=== PATIENT | female | born 1955 | race Caucasian/White ===

== ENCOUNTER → 2018-01-08 | Outpatient (CLI) | payer MEDICARE ==
[~2018-01-08] MED LIST: BUP75 PO; CALC250T7 PO; DONE10TA38 PO; GABA-551 PO; MULT-865 PO; NAT300I IV; PUMP300C; SULF-198 PO; TRAZ100T31 PO
[2018-01-08 11:43] LABS: PLATELET COUNT, AUTOMATED 286 K/uL (150-450)
[2018-01-08 12:02] LABS: LDL CHOLESTEROL 95 mg/dl
== END ==
LOC: LAB 11:18
PROVIDERS: ATTEND Emergency Medicine
DX: G35 Multiple sclerosis (principal); R20.8 Other disturbances of skin sensation; M81.0 Age-related osteoporosis without current pathological fracture; N39.0 Urinary tract infection, site not specified
CPT/HCPCS: 36415; 81001; 82040; 82247; 82306; 82310; 82374; 82435; 82465; 82565; 82607; 82947; 83718; 83970; 84075; 84132; 84155; 84295; 84443; 84450; 84460; 84478; 84520; 85025; 87088

== ENCOUNTER 2018-03-24 08:33 | Observation (INO) | payer MEDICARE ==
[~2018-03-24] VITALS: Ht 162.6 cm; Wt 66.7 kg
[2018-03-24] MEDS ORDERED: OXYB10TA16 (09:03)
[2018-03-24] MEDS ORDERED: NS(*) 0.9% 1000 ML BAG 1,000 ML IV ONE (09:35)
--- NOTE | 2018-03-24 09:35 | ER Report ---
History and Physical Time Seen By MD: 09:27 Hx. of Stated Complaint: Pt. has a history of MS. Cough since yesterday morning. Hypoxic 84% on room air, but came up to 93% on 4L O2. This morning she fell around 5:00am. Increased weakness from baseline. Trouble speaking this morning, which is not normal for her. Quick Neuro assessment, left sided weakness. Also has left wrist pain. HPI/ROS CHIEF COMPLAINT: Generalized weakness; fall HISTORY OF PRESENT ILLNESS: Patient is a 62-year-old female who was diagnosed with multiple sclerosis in 1984. Patient has baseline right-sided weakness. She is somewhat of a poor historian due to some mild cognitive impairment and additional history is obtained from the patient's . We are also trying to obtain medical records from [place] where she receives medical care and is followed by neurology. Patient notes worsening left-sided weakness. Apparently had a fall last evening and struck her head and then again the fall this morning around 5 AM with injury to left wrist and complaining of left wrist pain. notes that she is having difficulty with ambulating due to weakness. Patient was further found to be hypoxic ON ARRIVAL TO THE EMERGENCY DEPARTMENT AT 84%. PATIENT DOES NOT WEAR OXYGEN AT HOME. Patient does report bodyaches and headache along with sore throat yesterday. She denies any urinary symptoms. She is currently receiving Tysabri infusions next infusion as scheduled from 2 weeks from now. She has not required hospitalization due to MS for some period of time. REVIEW OF SYSTEMS: Constitutional: No fever, no chills. Generalized weakness Eyes: No discharge. ENT: No sore throat. Cardiovascular: No chest pain, no palpitations. Respiratory: No cough, no shortness of breath. Gastrointestinal: No abdominal pain, no vomiting. Genitourinary: No hematuria. Musculoskeletal: No back pain. Skin: No rashes. Neurological: Gen. headache Allergies: Coded Allergies: Penicillins (Verified Allergy, Unknown, unknown, 03/24/18) reported by patient, unknown reaction as a child Home Meds Reported Medications Oxybutynin Chloride (OXYBUTYNIN CHLORIDE ER) 10 Mg Tab.er.24 03/24/18 Trazodone Hcl (TRAZODONE HCL) 100 Mg Tablet, 100 MG PO QHS, TAB 01/08/18 Natalizumab (TYSABRI) 300 Mg/15 Ml Injs, 300 MG IV every 28 days 01/08/18 Multivitamin (DAILY MULTIPLE VITAMIN) 1 Each Tablet, 1 TAB PO DAILY 01/08/18 Gabapentin (GABAPENTIN) 400 Mg Capsule, 400 MG PO 5XD, CAPSULE 01/08/18 Donepezil Hcl (DONEPEZIL HCL) 10 Mg Tablet, 10 MG PO QDAY, TAB 01/08/18 Calcium Citrate (CALCIUM CITRATE) 250 Mg Tablet, 250 MG PO DAILY 01/08/18 Discontinued Reported Medications Pumpkin Seed Extract/Soy Germ (Azo Bladder Control Capsule) Unknown Strength Capsule 01/08/18 Discontinued Scripts Sulfamethoxazole/Trimet 800-160 Mg Tab (BACTRIM DS TABLET) 1 Each Tablet, 1 TAB PO Q12H for 7 Days, #14 TAB 0 Refills Prov:RUTHANN VIDALES MD 01/12/18 Past Medical/Surgical History Past medical history for multiple sclerosis diagnosed in her 30s. Currently taking Tysabri. Receives these monthly injections in [place]. She has a history of right hand weakness requires oral steroids about 3 times a year for exacerbations. Past medical history for mild cognitive impairment history of osteoporosis history of breast cancer undergoing partial right mastectomy in 2006. History of migraines, asthma, history of hysterectomy 1981 Smoking Status: Never Smoker Exposure to Second Hand Smoke?: Yes (both parents smoked) Constitutional Vital Sign - Last 24 Hours 03/24/18 03/24/18 03/24/18 03/24/18 08:54 08:55 09:00 09:03 Temp 98.4 Pulse 112 114 B/P (MAP) 138/98 (111) 138/98 125/84 (98) Pulse Ox 94 94 O2 Delivery Nasal Cannula 03/24/18 03/24/18 03/24/18 03/24/18 09:33 10:03 10:03 10:08 Pulse 109 104 104 Resp 22 30 19 Pulse Ox 93 94 93 O2 Flow Rate 4.0 03/24/18 03/24/18 03/24/18 03/24/18 10:38 11:17 11:30 11:38 Pulse 98 98 Resp 20 19 B/P (MAP) 120/92 (101) 118/80 (93) Pulse Ox 98 97 03/24/18 03/24/18 03/24/18 03/24/18 12:00 12:05 12:10 12:15 Pulse 101 101 99 Resp 16 22 20 B/P (MAP) 131/88 (102) 03/24/18 03/24/18 03/24/18 03/24/18 12:20 12:25 12:30 12:35 Pulse 95 96 96 Resp 16 14 27 B/P (MAP) 120/75 (90) 03/24/18 03/24/18 12:40 12:45 Pulse 96 90 Resp 17 16 Physical Exam General/Constitutional: Patient is awake, alert, nontoxic and in no acute respiratory distress. Head: Normocephalic and atraumatic. Eyes: Conjunctival clear, Pupils are equal and reactive to light. Extraocular muscles are noted for fatigable bilateral horizontal nystagmus. Sclera are clear and anicteric. Ears:External canals are clear. Tympanic membranes are clear with normal landmarks and light reflex. Nares: No rhinorrhea or bleeding. Turbinates are pink and moist. Oropharyngeal: Mucous membranes are moist. There is no pharyngeal erythema or exudate. There are no palatal petechiae. Uvula is midline and symmetrical. Neck: Supple, no adenopathy. Cardiovascular: Heart is regular rate and rhythm without audible murmurs, rubs or gallops. Pulmonary: Lungs are clear to auscultation bilaterally. There are no wheezes, rales, or rhonchi. Chest rise is symmetrical Abdomen: Soft, nontender, no guarding or peritoneal signs. Extremities: No gross deformities, No peripheral cyanosis. Able to move all 4 extremities. Neuro: Alert and oriented X3, Cranial nerves 2 thru 12 are intact and symmetrical. Decreased left sided negative retoucher strength. There are no gross motor exam 4 out of 5 except left negative retoucher Skin: No rashes, skin is warm dry and well perfused. Medical Decision Making Data Points Result Diagram: 03/24/1823 03/24/18 0923 Laboratory Hematology Test 03/24/18 09:23 03/24/18 09:51 03/24/18 09:55 Red Blood Count 5.10 M/uL (4.17-5.56) Mean Corpuscular Volume 86.2 fL (80.0-96.0) Mean Corpuscular Hemoglobin 29.3 pg (26.0-33.0) Mean Corpuscular Hemoglobin Concent 33.9 g/dL (32.0-36.0) Red Cell Distribution Width 14.0 % (11.5-14.5) Mean Platelet Volume 8.2 fL (7.2-11.1) Neutrophils (%) (Auto) 82.8 % (39.4-72.5) Lymphocytes (%) (Auto) 7.4 % (17.6-49.6) Monocytes (%) (Auto) 8.8 % (4.1-12.4) Eosinophils (%) (Auto) 0.5 % (0.4-6.7) Basophils (%) (Auto) 0.5 % (0.3-1.4) Nucleated RBC Relative Count (auto) 0.1 /100WBC Neutrophils # (Auto) 6.1 K/uL (2.0-7.4) Lymphocytes # (Auto) 0.5 K/uL (1.3-3.6) Monocytes # (Auto) 0.6 K/uL (0.3-1.0) Eosinophils # (Auto) 0.0 K/uL (0.0-0.5) Basophils # (Auto) 0.0 K/uL (0.0-0.1) Nucleated RBC Absolute Count (auto) 0.01 K/uL Prothrombin Time 13.9 seconds (12.0-14.4) Prothromb Time International Ratio 1.07 Activated Partial Thromboplast Time 29 seconds (23-35) Sodium Level 140 mmol/L (137-145) Potassium Level 3.5 mmol/L (3.5-5.0) Chloride Level 104 mmol/L (98-107) Carbon Dioxide Level 28 mmol/L (22-31) Blood Urea Nitrogen 14 mg/dl (7-18) Creatinine 0.70 mg/dl (0.52-1.04) Glomerular Filtration Rate Calc > 60.0 Random Glucose 122 mg/dl (75-110) Lactate 1.6 mmol/L (0.7-2.1) Calcium Level 9.3 mg/dl (8.4-10.2) Magnesium Level 2.0 mg/dl (1.7-2.2) Total Bilirubin 0.5 mg/dl (0.2-1.3) Aspartate Amino Transf (AST/SGOT) 49 U/L (0-35) Alanine Aminotransferase (ALT/SGPT) 61 U/L (0-56) Alkaline Phosphatase 81 U/L (0-126) Total Creatine Kinase 27 U/L (30-135) Troponin I < 0.012 ng/ml Total Protein 8.2 g/dl (6.3-8.2) Albumin 4.9 g/dl (3.5-5.0) Urine Color Yellow Urine Clarity Turbid Urine pH 7.0 pH (4.8-9.5) Urine Specific [place] 1.017 Urine Protein 30 mg/dL (NEGATIVE) Urine Glucose (UA) Negative mg/dL (NEGATIVE) Urine Ketones Negative mg/dL (NEGATIVE) Urine Blood Negative (NEGATIVE) Urine Nitrite Negative (NEGATIVE) Urine Bilirubin Negative (NEGATIVE) Urine Urobilinogen Negative mg/dL (0.2-1.9) Urine Leukocyte Esterase Negative (NEGATIVE) Urine RBC None /HPF (0-2/HPF) Urine WBC None /HPF (0-5/HPF) Urine Squamous Epithelial Cells None /LPF (NONE-FEW) Urine Amorphous Crystals Few /HPF Urine Bacteria Negative /HPF (NONE-FEW) Urine Mucus None /HPF (NONE-FEW) Influenza Virus Type A (PCR) Positive (NEGATIVE) Influenza Virus Type B (PCR) Negative (NEGATIVE) Chemistry Test 03/24/18 09:23 03/24/18 09:51 03/24/18 09:55 White Blood Count 7.4 k/uL (4.5-11.0) Red Blood Count 5.10 M/uL (4.17-5.56) Hemoglobin 14.9 g/dL (12.0-16.0) Hematocrit 44.0 % (34.0-47.0) Mean Corpuscular Volume 86.2 fL (80.0-96.0) Mean Corpuscular Hemoglobin 29.3 pg (26.0-33.0) Mean Corpuscular Hemoglobin Concent 33.9 g/dL (32.0-36.0) Red Cell Distribution Width 14.0 % (11.5-14.5) Platelet Count 190 K/uL (150-450) Mean Platelet Volume 8.2 fL (7.2-11.1) Neutrophils (%) (Auto) 82.8 % (39.4-72.5) Lymphocytes (%) (Auto) 7.4 % (17.6-49.6) Monocytes (%) (Auto) 8.8 % (4.1-12.4) Eosinophils (%) (Auto) 0.5 % (0.4-6.7) Basophils (%) (Auto) 0.5 % (0.3-1.4) Nucleated RBC Relative Count (auto) 0.1 /100WBC Neutrophils # (Auto) 6.1 K/uL (2.0-7.4) Lymphocytes # (Auto) 0.5 K/uL (1.3-3.6) Monocytes # (Auto) 0.6 K/uL (0.3-1.0) Eosinophils # (Auto) 0.0 K/uL (0.0-0.5) Basophils # (Auto) 0.0 K/uL (0.0-0.1) Nucleated RBC Absolute Count (auto) 0.01 K/uL Prothrombin Time 13.9 seconds (12.0-14.4) Prothromb Time International Ratio 1.07 Activated Partial Thromboplast Time 29 seconds (23-35) Glomerular Filtration Rate Calc > 60.0 Lactate 1.6 mmol/L (0.7-2.1) Calcium Level 9.3 mg/dl (8.4-10.2) Magnesium Level 2.0 mg/dl (1.7-2.2) Total Bilirubin 0.5 mg/dl (0.2-1.3) Aspartate Amino Transf (AST/SGOT) 49 U/L (0-35) Alanine Aminotransferase (ALT/SGPT) 61 U/L (0-56) Alkaline Phosphatase 81 U/L (0-126) Total Creatine Kinase 27 U/L (30-135) Troponin I < 0.012 ng/ml Total Protein 8.2 g/dl (6.3-8.2) Albumin 4.9 g/dl (3.5-5.0) Urine Color Yellow Urine Clarity Turbid Urine pH 7.0 pH (4.8-9.5) Urine Specific [place] 1.017 Urine Protein 30 mg/dL (NEGATIVE) Urine Glucose (UA) Negative mg/dL (NEGATIVE) Urine Ketones Negative mg/dL (NEGATIVE) Urine Blood Negative (NEGATIVE) Urine Nitrite Negative (NEGATIVE) Urine Bilirubin Negative (NEGATIVE) Urine Urobilinogen Negative mg/dL (0.2-1.9) Urine Leukocyte Esterase Negative (NEGATIVE) Urine RBC None /HPF (0-2/HPF) Urine WBC None /HPF (0-5/HPF) Urine Squamous Epithelial Cells None /LPF (NONE-FEW) Urine Amorphous Crystals Few /HPF Urine Bacteria Negative /HPF (NONE-FEW) Urine Mucus None /HPF (NONE-FEW) Influenza Virus Type A (PCR) Positive (NEGATIVE) Influenza Virus Type B (PCR) Negative (NEGATIVE) Coagulation Test 03/24/18 09:23 Prothrombin Time 13.9 seconds Prothromb Time International Ratio 1.07 Activated Partial Thromboplast Time 29 seconds Urinalysis Test 03/24/18 09:51 Urine Color Yellow Urine Clarity Turbid Urine pH 7.0 pH (4.8-9.5) Urine Specific [place] 1.017 Urine Protein 30 mg/dL (NEGATIVE) Urine Glucose (UA) Negative mg/dL (NEGATIVE) Urine Ketones Negative mg/dL (NEGATIVE) Urine Blood Negative (NEGATIVE) Urine Nitrite Negative (NEGATIVE) Urine Bilirubin Negative (NEGATIVE) Urine Urobilinogen Negative mg/dL (0.2-1.9) Urine Leukocyte Esterase Negative (NEGATIVE) Urine RBC None /HPF (0-2/HPF) Urine WBC None /HPF (0-5/HPF) Urine Squamous Epithelial Cells None /LPF (NONE-FEW) Urine Amorphous Crystals Few /HPF Urine Bacteria Negative /HPF (NONE-FEW) Urine Mucus None /HPF (NONE-FEW) EKG/Imaging EKG Interpretation EKG shows sinus tachycardia with a ventricular rate of 10 6 bpm nonspecific T- wave abnormalities noted on this EKG. Imaging FACILITY: [facility] PATIENT NAME: Maura Naik : 1955 MR: [id number] V: [id number] EXAM DATE: ORDERING PHYSICIAN: MICHAEL LUDWIG TECHNOLOGIST: Location: [facility] Patient: Maura Naik : 1955 Visit/Account:[id number] Date of Sevice: 03/24/2018 EXAMINATION: CT Head without intravenous contrast CT Cervical spine without intravenous contrast HISTORY: Trauma. TECHNIQUE: Head: Axial images were obtained from the skull base to the vertex without int ravenous contrast. Sagittal and coronal reformatted images are also submitted. Cervical spine: Axial images were obtained from the skull base through the upper thoracic spine without IV contrast administration. Coronal and sagittal reformatted images were obtained from the axial source data. One of the following dose optimization techniques was utilized in the performance of this exam: Automated exposure control; adjustment of the mA and/or kV according to the patient's size; or use of an iterative reconstruction technique. Specific details can be referenced in the facility's radiology CT exam operational policy. COMPARISON: None available. FINDINGS: HEAD: Brain volume: Mild generalized volume loss. Ventricles: Negative. Acute ischemic changes: None. Hemorrhage: None. Masses / edema: None. Zhang-white: Negative. White matter: Moderate patchy hypodensity in the periventricular and deep white matter. This is nonspecific but most likely represents chronic microvascular ischemia. Vessels: Mild calcified plaque in the carotid siphons. Extra-axial: Negative. Calvarium / skull base: Negative. Visualized sinuses / orbits: Mild to moderate mucosal thickening in the paranasal sinuses with fluid in the left sphenoid sinus. Rightward nasal septal deviation. CERVICAL SPINE: Alignment: Straightening and slight reversal of the normal lordosis. 2 mm of anterior listhesis of C4 over C5. Cranio-cervical junction: Mild degenerative changes in the atlantodental joint. Otherwise negative. Vertebral bodies: Negative. Posterior elements: Mild multilevel facet hypertrophy. Hardware: None. Disc Spaces: Mild multilevel degenerative disc disease, most severe at C6-C7. Soft tissues: No prevertebral soft tissue swelling. Partially imaged central line on the right. Visualized upper chest: Negative. IMPRESSION: 1. No acute intracranial abnormality. 2. No acute cervical spine fracture. 3. See above report for chronic findings. Report Dictated By: Filipe Padilla MD at 03/24/2018 11:16 AM Report E-Signed By: Filipe Padilla MD at 03/24/2018 11:27 AM WSN:AMICIVN FACILITY: [facility] PATIENT NAME: Maura Naik : 1955 MR: [id number] V: [id number] EXAM DATE: ORDERING PHYSICIAN: MICHAEL LUDWIG TECHNOLOGIST: Location: [facility] Patient: Maura Naik : 1955 Visit/Account:[id number] Date of Sevice: 03/24/2018 CHEST PA LAT HISTORY: Chest pain. Trauma. COMPARISON: None available. FINDINGS: Lines/tubes: Right chest wall port terminating near the atrial caval junction. Lungs/pleura: Mild consolidation versus scarring or atelectasis in the left lung base. Otherwise negative. Heart: Negative. Mediastinum: Negative. Bony structures/body wall: Negative. IMPRESSION: Mild consolidation versus scarring or atelectasis in the left lung base. Otherwise no acute cardiopulmonary process. Report Dictated By: Filipe Padilla MD at 03/24/2018 11:29 AM Report E-Signed By: Filipe Padilla MD at 03/24/2018 11:31 AM FACILITY: [facility] PATIENT NAME: Maura Naik : 1955 MR: [id number] V: [id number] EXAM DATE: ORDERING PHYSICIAN: MICHAEL LUDWIG TECHNOLOGIST: Location: [facility] Patient: Maura Naik : 1955 Visit/Account:[id number] Date of Sevice: 03/24/2018 XR WRIST 3 OR MORE VIEWS LT Indication: Left wrist pain. Trauma. Comparison: None available. Findings: 3 views of the left wrist. No evidence of acute fracture, dislocation, or radiopaque foreign body. Normal mineralization, joint spaces, and alignment. Impression: Negative left wrist radiographs. Report Dictated By: Filipe Padilla MD at 03/24/2018 11:27 AM Report E-Signed By: Filipe Padilla MD at 03/24/2018 11:29 AM WSN:AMICIVN ED Course/Re-evaluation ED Course Patient with history of MS and global weakness. Plan will be imaging of the head and C-spine were also image the left wrist. 03/24/2018 12:17:21 pm patient positive influenza screen remaining workup was essentially unremarkable. Patient is fairly hypoxic on room air and does not wear O2 at home. I am pushing for admission because of positive influenza and hypoxia. Patient was given Tamiflu. Patient is against being admitted at this time but is discussing admission with her family I will revisit them in approximately 5 or 10 minutes to decide her disposition. Decision to Disposition Date: Mar 24, 2018 Decision to Disposition Time: 12:56 Depart Departure Latest Vital Signs Vital Signs Date Time Temp Pulse Resp B/P (MAP) Pulse Ox O2 Delivery O2 Flow Rate FiO2 03/24/18 12:45 90 16 03/24/18 12:30 120/75 (90) 03/24/18 11:38 97 03/24/18 10:03 4.0 03/24/18 08:55 98.4 Nasal Cannula Impression: Primary Impression: Influenza A Additional Impression: Hypoxia Condition: Improved Disposition: Admitted from ER (to Dr Corbett) Referrals: RUTHANN VIDALES MD (PCP) Problem Qualifiers MICHAEL LUDWIG MD Mar 24, 2018 09:35
[2018-03-24 09:44] LABS: PLATELET COUNT, AUTOMATED 190 K/uL (150-450)
[2018-03-24 09:49] LABS: INR 1.07
--- NOTE | 2018-03-24 09:49 | EKG ---
FACILITY: [facility] PATIENT NAME: ULISES MAR : [id number] MR: [id number] V: [id number] EXAM DATE: ORDERING PHYSICIAN: MICHAEL LUDWIG TECHNOLOGIST: DAWSON Geiger Reason : TACHY Blood Pressure : / mmHG Vent. Rate : 106 BPM Atrial Rate : 106 BPM P-R Int : 162 ms QRS Dur : 078 ms QT Int : 346 ms P-R-T Axes : 040 004 007 degrees QTc Int : 459 ms Sinus tachycardia Nonspecific T wave abnormality Abnormal ECG No previous ECGs available Confirmed by Jaylen Forrest ([id number]) on 03/24/2018 9:44:21 PM Referred By: VANI Confirmed By:Jaylen Corbett
--- NOTE | 2018-03-24 11:33 | RADIOLOGY IMAGING REPORT ---
FACILITY: [facility] PATIENT NAME: Maura Naik : 1955 MR: [id number] V: [id number] EXAM DATE: ORDERING PHYSICIAN: MICHAEL LUDWIG TECHNOLOGIST: Location: [facility] Patient: Maura Naik : 1955 Visit/Account:[id number] Date of Sevice: 03/24/2018 EXAMINATION: CT Head without intravenous contrast CT Cervical spine without intravenous contrast HISTORY: Trauma. TECHNIQUE: Head: Axial images were obtained from the skull base to the vertex without intravenous contrast. Sa gittal and coronal reformatted images are also submitted. Cervical spine: Axial images were obtained from the skull base through the upper thoracic spine with out IV contrast administration. Coronal and sagittal reformatted images were obtained from the axial source data. One of the following dose optimization techniques was utilized in the performance of this exam: Autom ated exposure control; adjustment of the mA and/or kV according to the patient's size; or use of an i terative reconstruction technique. Specific details can be referenced in the facility's radiology C T exam operational policy. COMPARISON: None available. FINDINGS: HEAD: Brain volume: Mild generalized volume loss. Ventricles: Negative. Acute ischemic changes: None. Hemorrhage: None. Masses / edema: None. Zhang-white: Negative. White matter: Moderate patchy hypodensity in the periventricular and deep white matter. This is non specific but most likely represents chronic microvascular ischemia. Vessels: Mild calcified plaque in the carotid siphons. Extra-axial: Negative. Calvarium / skull base: Negative. Visualized sinuses / orbits: Mild to moderate mucosal thickening in the paranasal sinuses with fluid in the left sphenoid sinus. Rightward nasal septal deviation. CERVICAL SPINE: Alignment: Straightening and slight reversal of the normal lordosis. 2 mm of anterior listhesis of C 4 over C5. Cranio-cervical junction: Mild degenerative changes in the atlantodental joint. Otherwise negative. Vertebral bodies: Negative. Posterior elements: Mild multilevel facet hypertrophy. Hardware: None. Disc Spaces: Mild multilevel degenerative disc disease, most severe at C6-C7. Soft tissues: No prevertebral soft tissue swelling. Partially imaged central line on the right. Visualized upper chest: Negative. IMPRESSION: 1. No acute intracranial abnormality. 2. No acute cervical spine fracture. 3. See above report for chronic findings. Report Dictated By: Filipe Padilla MD at 03/24/2018 11:16 AM Report E-Signed By: Filipe Padilla MD at 03/24/2018 11:27 AM WSN:NELSON
--- NOTE | 2018-03-24 11:33 | RADIOLOGY IMAGING REPORT ---
FACILITY: [facility] PATIENT NAME: Maura Naik : 1955 MR: [id number] V: [id number] EXAM DATE: ORDERING PHYSICIAN: MICHAEL LUDWIG TECHNOLOGIST: Location: [facility] Patient: Maura Naik : 1955 Visit/Account:[id number] Date of Sevice: 03/24/2018 EXAMINATION: CT Head without intravenous contrast CT Cervical spine without intravenous contrast HISTORY: Trauma. TECHNIQUE: Head: Axial images were obtained from the skull base to the vertex without intravenous contrast. Sa gittal and coronal reformatted images are also submitted. Cervical spine: Axial images were obtained from the skull base through the upper thoracic spine with out IV contrast administration. Coronal and sagittal reformatted images were obtained from the axial source data. One of the following dose optimization techniques was utilized in the performance of this exam: Autom ated exposure control; adjustment of the mA and/or kV according to the patient's size; or use of an i terative reconstruction technique. Specific details can be referenced in the facility's radiology C T exam operational policy. COMPARISON: None available. FINDINGS: HEAD: Brain volume: Mild generalized volume loss. Ventricles: Negative. Acute ischemic changes: None. Hemorrhage: None. Masses / edema: None. Zhang-white: Negative. White matter: Moderate patchy hypodensity in the periventricular and deep white matter. This is non specific but most likely represents chronic microvascular ischemia. Vessels: Mild calcified plaque in the carotid siphons. Extra-axial: Negative. Calvarium / skull base: Negative. Visualized sinuses / orbits: Mild to moderate mucosal thickening in the paranasal sinuses with fluid in the left sphenoid sinus. Rightward nasal septal deviation. CERVICAL SPINE: Alignment: Straightening and slight reversal of the normal lordosis. 2 mm of anterior listhesis of C 4 over C5. Cranio-cervical junction: Mild degenerative changes in the atlantodental joint. Otherwise negative. Vertebral bodies: Negative. Posterior elements: Mild multilevel facet hypertrophy. Hardware: None. Disc Spaces: Mild multilevel degenerative disc disease, most severe at C6-C7. Soft tissues: No prevertebral soft tissue swelling. Partially imaged central line on the right. Visualized upper chest: Negative. IMPRESSION: 1. No acute intracranial abnormality. 2. No acute cervical spine fracture. 3. See above report for chronic findings. Report Dictated By: Filipe Padilla MD at 03/24/2018 11:16 AM Report E-Signed By: Filipe Padilla MD at 03/24/2018 11:27 AM WSN:NELSON
--- NOTE | 2018-03-24 11:34 | RADIOLOGY IMAGING REPORT ---
FACILITY: [facility] PATIENT NAME: Maura Naik : 1955 MR: [id number] V: [id number] EXAM DATE: ORDERING PHYSICIAN: MICHAEL LUDWIG TECHNOLOGIST: Location: [facility] Patient: Maura Naik : 1955 Visit/Account:[id number] Date of Sevice: 03/24/2018 XR WRIST 3 OR MORE VIEWS LT Indication: Left wrist pain. Trauma. Comparison: None available. Findings: 3 views of the left wrist. No evidence of acute fracture, dislocation, or radiopaque foreign body. Normal mineralization, joint spaces, and alignment. Impression: Negative left wrist radiographs. Report Dictated By: Filipe Padilla MD at 03/24/2018 11:27 AM Report E-Signed By: Filipe Padilla MD at 03/24/2018 11:29 AM WSN:NELSON
--- NOTE | 2018-03-24 11:34 | RADIOLOGY IMAGING REPORT ---
FACILITY: [facility] PATIENT NAME: Maura Naik : 1955 MR: [id number] V: [id number] EXAM DATE: ORDERING PHYSICIAN: MICHAEL LUDWIG TECHNOLOGIST: Location: [facility] [place] Patient: Maura Naik : 1955 Visit/Account:[id number] Date of Sevice: 03/24/2018 CHEST PA LAT HISTORY: Chest pain. Trauma. COMPARISON: None available. FINDINGS: Lines/tubes: Right chest wall port terminating near the atrial caval junction. Lungs/pleura: Mild consolidation versus scarring or atelectasis in the left lung base. Otherwise ne gative. Heart: Negative. Mediastinum: Negative. Bony structures/body wall: Negative. IMPRESSION: Mild consolidation versus scarring or atelectasis in the left lung base. Otherwise no ac tawanda cardiopulmonary process. Report Dictated By: Filipe Padilla MD at 03/24/2018 11:29 AM Report E-Signed By: Filipe Padilla MD at 03/24/2018 11:31 AM WSN:[email or web address]
[2018-03-24] MEDS ORDERED: OSELTAMIVIR PHOS 75 MG CAP PO ONE (12:15)
[2018-03-24 14:10] VITALS: BP 136/79
[2018-03-24] MEDS ORDERED: ONDANSETRON 4 MG/2 ML VIAL IVP PRN (16:00)
[2018-03-24] MEDS ORDERED: FLUSH 10 ML SYR IVP PRN (16:00)
--- NOTE | 2018-03-24 16:12 | History & Physical ---
History of Present Illness Chief Complaint weakness, cough History of Present Illness 62F presented with complaint of weakness, fatigue, TREJO, cough, chills. PMHx significant for MS, asthma. Reports feeling worse for last several days. Presented to ER when having fatigue and difficulty ambulating. There found to be hypoxic at 84% with positive screening for Influenza A. Admitted for further treatment and evaluation due to 4L oxygen requirement. History Problems: (1) Multiple sclerosis Status: Chronic (2) Asthma Status: Chronic Home Meds Reported Medications Oxybutynin Chloride (OXYBUTYNIN CHLORIDE ER) 10 Mg Tab.er.24 03/24/18 Trazodone Hcl (TRAZODONE HCL) 100 Mg Tablet, 100 MG PO QHS, TAB 01/08/18 Natalizumab (TYSABRI) 300 Mg/15 Ml Injs, 300 MG IV every 28 days 01/08/18 Multivitamin (DAILY MULTIPLE VITAMIN) 1 Each Tablet, 1 TAB PO DAILY 01/08/18 Gabapentin (GABAPENTIN) 400 Mg Capsule, 400 MG PO 5XD, CAPSULE 01/08/18 Donepezil Hcl (DONEPEZIL HCL) 10 Mg Tablet, 10 MG PO QDAY, TAB 01/08/18 Calcium Citrate (CALCIUM CITRATE) 250 Mg Tablet, 250 MG PO DAILY 01/08/18 Discontinued Reported Medications Pumpkin Seed Extract/Soy Germ (Azo Bladder Control Capsule) Unknown Strength Capsule 01/08/18 Discontinued Scripts Sulfamethoxazole/Trimet 800-160 Mg Tab (BACTRIM DS TABLET) 1 Each Tablet, 1 TAB PO Q12H for 7 Days, #14 TAB 0 Refills Prov:RUTHANN VIDALES MD 01/12/18 Allergies: Coded Allergies: Penicillins (Verified Allergy, Unknown, unknown, 03/24/18) reported by patient, unknown reaction as a child Patient History: Benign essential tremor MOTHER, Age:86 FH: anemia MOTHER, Age:86 FH: dementia MOTHER, Age:86 FH: esophageal cancer CHILD FH: macular degeneration FATHER, Age:89 FHx: stomach cancer CHILD Mastectomy MOTHER, Age:86 No Family History of: Essential hypertension Hx Smoking: No Smoking Status: Never Smoker Exposure to Second Hand Smoke?: Yes (both parents smoked) Caffeine Intake: Coffee Caffeine/Cups Per Day: 2C Hx Alcohol Use: No Hx Substance Use Disorder: No Social Drug Use: Never Review of Systems All Systems Reviewed/Normal: Yes, Except as Noted Constitutional: Chills Neurological: Weakness Respiratory: Cough Gastrointestinal: No Nausea, No Vomiting Exam Vital Signs Vital Signs Date Time Temp Pulse Resp B/P (MAP) Pulse Ox O2 Delivery O2 Flow Rate FiO2 03/24/18 14:36 Nasal Cannula 4.0 03/24/18 14:10 98.5 20 136/79 (98) 94 03/24/18 13:30 101 General Appearance: Alert, Awake, No Acute Distress, Afebrile Neuro: No Gross deficits ENT: Normal Cardiovascular: Normal Rhythm & Peripheral Pulses Respiratory: No Respiratory Distress (4L O2) GI: Abd Soft and Non-Tender Musculoskeletal: No Weakness/Pain Extremities: Soft and Non Tender, Warm, Pulses, Perfused Medical Decision Making Data Points Result Diagram: 03/24/1892203/24/18922 Assessment and Plan Problems: (1) Hypoxia Status: Acute Assessment & Plan: On 4L in ER, titrated to 1.5L on arrival with sat 95%. Will continue to wean. (2) Influenza A Status: Acute Assessment & Plan: Begin Tamiflu. (3) Multiple sclerosis Status: Chronic Assessment & Plan: Chronic, controlled with Tysabri infusions. No recent exacerbations but does report symptoms worsen with acute illness. Pt/OT evaluation. (4) Asthma Status: Chronic Assessment & Plan: No medications per records review. Venous Thromboembolism Antithrombotics Is Pt On Any Antithrombotics?: Yes Exam Sepsis Risk: No Definite Risk SONIA MENSAH DO Mar 24, 2018 16:12
[2018-03-24] MEDS: ACETAMINOPHEN 325 MG TAB PO PRN (17:53)
[2018-03-24] MEDS: NS(*) 0.9% 1000 ML BAG 1,000 ML IV PRN (17:53)
--- NOTE | 2018-03-24 18:10 | NUR ---
Patient has mild confusion at this time. ED stated rec'd PMHx from [facility] and would send in chart. No records in chart, no records scanned. Pulled PMHx from Dr Keith's intake. Addendum: 03/24/18 at 1811 by MIKEL GOMES RN Amended: Links added.
[2018-03-24 19:03] VITALS: BP 132/74
[2018-03-24] MEDS: OSELTAMIVIR PHOS 75 MG CAP PO SCH (21:15)
[2018-03-25] MEDS: ACETAMINOPHEN 325 MG TAB PO PRN (02:42)
[2018-03-25] MEDS: NS(*) 0.9% 1000 ML BAG 1,000 ML IV PRN (03:57)
[2018-03-25 06:02] LABS: PLATELET COUNT, AUTOMATED 178 K/uL (150-450)
[2018-03-25 07:32] VITALS: BP 128/70
[2018-03-25] MEDS: OSELTAMIVIR PHOS 75 MG CAP PO SCH (07:47)
[2018-03-25] MEDS ORDERED: ENOXAPARIN 40 MG/0.4ML SYR SC SCH (09:00)
[2018-03-25 09:50] VITALS: BMI 25.2
--- NOTE | 2018-03-25 10:47 | Antimicrobial Stewardship ---
Antimicrobial Stewardship Empiricly appropriate: Yes Significant PMH: Yes (MS on Tysabri, Influenza A (+)) Support empiric regimen: Yes Comment Started on Tamiflu 75 mg po BID x 5 days Approriate Cultures done: Yes (Blood Cx x 2, Urine Cx ---NGTD) Renal/Hepatic dosing: Yes (LFTs slightly elevated) Determine cumulative duration: Today is day 2 Determine standard duration: Total duration is 5 days of therapy Comment 62 yo F who presented with generalized weakness, SOB who also has a PMH of MS on Tysabri. WBC wnl Hypoxia on admission- no oxygen at baseline LFTs slightly elevated Influenza A (+) Temp afebrile CT of head/cervical spine - no acute findings Plan treat for 5 days with Tamiflu 75mg po BID. Pt is immunocompromised on Tysabri. Will continue to follow. Mirela Miranda, PharmD, OP MIRELA MIRANDA Mar 25, 2018 10:47
--- NOTE | 2018-03-25 11:57 | NUR ---
Occupational Therapy Impression (I) UB/LB dressing. (I) toileting. (I) bed mobility. (I) ambulation in room, unsteady. Encouraged ambulation with RW for additional support, pt refusing, reporting having 4WW at home. Pt reports she is at baseline and desires to discharge home after lunch. Pt declining recommendation for services or outpatient therapy. Reports having all necessary AE and assist from spouse. Oriented to call light, encouraged to utilize call light when pt desires to get up from chair. Pt ready for discharge when medically appropriate. Occupational Therapy Goals Patient's Goal
--- NOTE | 2018-03-25 12:00 | NUR ---
Physical Therapy Impression PT/OT order placed; Pt seen by OT and is ready for d/c when medically appropriate. Pt declined further services, declining use of FWW for safety with mobility as well. Physical Therapy Goals Patient's Goals
[2018-03-25] MEDS ORDERED: OSE75 PO (13:41)
--- NOTE | 2018-03-25 13:55 | Hospitalist Depart ---
Discharge Summary Reason for Hosp/Final Diag: (1) Influenza A Status: Acute Hospital Course & Plan: She presented with weakness, fatigue, TREJO, cough, chills that were progressively worsening over several days. She was hypoxic and required 4 liters of O2. She tested positive for influenza A. She was started on Tamiflu. Today, she is feeling much improved and is now maintaining her saturations on room air. She will go home on a 5 day course of Tamiflu. (2) Hypoxia Status: Acute Hospital Course & Plan: On 4L in ER, titrated to 1.5L on arrival to the medical floor with sat 95%. This morning she is on room air. (3) Multiple sclerosis Status: Chronic Hospital Course & Plan: Chronic, controlled with Tysabri infusions. No recent exacerbations but does report symptoms worsen with acute illness. (4) Asthma Status: Chronic Hospital Course & Plan: No medications per records review. Departure Weight (Pounds): 147 Result Diagram: 03/25/18 0503/25/18515 Item Value Date Time Influenza Virus Type A (PCR) Positive 03/24/18 0955 Urine RBC None /HPF 03/24/18 0951 Urine WBC None /HPF 03/24/18 0951 Urine Squamous Epithelial Cells None /LPF 03/24/18 0951 Urine Amorphous Crystals Few /HPF 03/24/18 0951 Urine Leukocyte Esterase Negative 03/24/18 0951 Urine Nitrite Negative 03/24/18 0951 Blood Urea Nitrogen 14 mg/dl 03/24/18 0923 Creatinine 0.70 mg/dl 03/24/18 0923 Blood Urea Nitrogen 10 mg/dl 03/25/18 0516 Creatinine 0.50 mg/dl L 03/25/18 0516 Total Bilirubin 0.5 mg/dl 03/24/18 0923 Aspartate Amino Transf (AST/SGOT) 49 U/L H 03/24/18 0923 Alanine Aminotransferase (ALT/SGPT) 61 U/L H 03/24/18 0923 Alkaline Phosphatase 81 U/L 03/24/18 0923 Total Bilirubin 0.4 mg/dl 03/25/18 0516 Aspartate Amino Transf (AST/SGOT) 31 U/L 03/25/18 0516 Alanine Aminotransferase (ALT/SGPT) 48 U/L 03/25/18 0516 Alkaline Phosphatase 65 U/L 03/25/18 0516 Troponin I < 0.012 ng/ml 03/24/18 0923 Total Creatine Kinase 27 U/L L 03/24/18 0923 Lactate 1.6 mmol/L 03/24/18 0923 Prothromb Time International Ratio 1.07 03/24/18 0923 Blood cultures x2 without growth since 03/24/18 Urine culture without growth since 03/24/18 Imaging 03/24/[address] - 1. No acute intracranial abnormality. 2. No acute cervical spine fracture. 3. See above report for chronic findings. 03/24/18 CXR - Mild consolidation versus scarring or atelectasis in the left lung base. Otherwise no acute cardiopulmonary process. 03/24/[address] - 1. No acute intracranial abnormality. 2. No acute cervical spine fracture. 3. See above report for chronic findings. 03/24/18 Wrist Xray - Negative left wrist radiographs. EKG Vent. Rate : 106 BPM Atrial Rate : 106 BPM P-R Int : 162 ms QRS Dur : 078 ms QT Int : 346 ms P-R-T Axes : 040 004 007 degrees QTc Int : 459 ms Sinus tachycardia Nonspecific T wave abnormality Abnormal ECG No previous ECGs available Confirmed by Jaylen Forrest ([id number]) on 03/24/2018 9:44:21 PM Condition: Improved Discharge: Home Discharge Instructions Home Meds Active Scripts Oseltamivir Phosphate (TAMIFLU) 75 Mg Cap, 75 MG PO BID, #10 CAP Prov:DANUTA LOVE MD 03/25/18 Reported Medications Oxybutynin Chloride (OXYBUTYNIN CHLORIDE ER) 10 Mg Tab.er.24 03/24/18 Trazodone Hcl (TRAZODONE HCL) 100 Mg Tablet, 100 MG PO QHS, TAB 01/08/18 Natalizumab (TYSABRI) 300 Mg/15 Ml Injs, 300 MG IV every 28 days 01/08/18 Multivitamin (DAILY MULTIPLE VITAMIN) 1 Each Tablet, 1 TAB PO DAILY 01/08/18 Gabapentin (GABAPENTIN) 400 Mg Capsule, 400 MG PO 5XD, CAPSULE 01/08/18 Donepezil Hcl (DONEPEZIL HCL) 10 Mg Tablet, 10 MG PO QDAY, TAB 01/08/18 Calcium Citrate (CALCIUM CITRATE) 250 Mg Tablet, 250 MG PO DAILY 01/08/18 Discontinued Reported Medications Pumpkin Seed Extract/Soy Germ (Azo Bladder Control Capsule) Unknown Strength Capsule 01/08/18 Discontinued Scripts Sulfamethoxazole/Trimet 800-160 Mg Tab (BACTRIM DS TABLET) 1 Each Tablet, 1 TAB PO Q12H for 7 Days, #14 TAB 0 Refills Prov:RUTHANN VIDALES MD 01/12/18 Diet: Regular Activity: As Tolerated, With Walker Special Instructions: Go to the ER for worsening SOB. Follow up with your PCP in 1-2 weeks. Copies to: RUTHANN VIDALES MD ; Venous Thromboembolism Antithrombotics Is Pt On Any Antithrombotics?: Yes DANUTA LOVE MD Mar 25, 2018 13:55
[2018-03-25 14:10] VITALS: Ht 162.6 cm; Wt 66.7 kg
[2018-03-26] MEDS ORDERED: INFLUENZA VIRUS VAC 0.5ML SYR IM ONLY ONE (09:00)
== END 2018-03-25 13:46 | disposition home or self-care (01) ==
LOC: ER 09:33 → MED 12:56 → INTOOBSV 12:56
PROVIDERS: ADMIT Internal Medicine; ATTEND Internal Medicine
DX: J09.X2 Influenza due to identified novel influenza A virus with other respiratory manifestations (principal); R09.02 Hypoxemia; M25.532 Pain in left wrist; G35 Multiple sclerosis; R51 Headache; R00.0 Tachycardia, unspecified; R07.89 Other chest pain; J44.9 Chronic obstructive pulmonary disease, unspecified
CPT/HCPCS: 36415; 70450; 71046; 72125; 73110; 81001; 82550; 83605; 83735; 84484; 85025; 85610; 85730; 87040; 87088; 87502; 93005; 96360; 97165; 99284; A9270; G0378; J1650; J7030; 82040; 82247; 82310; 82374; 82435; 82565; 82947; 84075; 84132; 84155; 84295; 84450; 84460; 84520

== ENCOUNTER → 2018-04-30 | Outpatient (CLI) | payer MEDICARE ==
[~2018-04-30] MED LIST changes: +OSE75 PO; +OXYB10TA16
--- NOTE | 2018-04-30 15:06 | RADIOLOGY IMAGING REPORT ---
FACILITY: [facility] PATIENT NAME: ULISES MAR : [id number] MR: [id number] V: [id number] EXAM DATE: ORDERING PHYSICIAN: RUTHANN VIDALES TECHNOLOGIST: Hailey Baig PROCEDURE: MAMMOGRAM SCREENING LEFT UNILATERAL WITH CAD ASSISTED INTERPRETATION & 3D TOMOSYNTHESIS COMPARISON: Prior Left mammograms of 12/24/16, 12/19/15, 09/08/14, 07/08/13, 04/06/12 INDICATIONS: SCREENING FINDINGS: There are scattered areas of fibroglandular density throughout the Left breast. The parenchymal pattern has remained stable when allowing for difference in mammographic technique & patient positioning. DIAGNOSTIC CATEGORY 1--NEGATIVE. RECOMMENDATIONS: ROUTINE MAMMOGRAM AND CLINICAL EVALUATION. IMPRESSION: BIRADS 1: Negative. No significant abnormality is seen. Dictated by: Kathryn Damon M.D. on 04/30/2018 at 11:27 Transcribed by: CARLOS on 04/30/2018 at 14:29 Approved by: Kathryn Damon M.D. on 04/30/2018 at 15:05 [facility]
== END ==
LOC: MAMO 03-25 01:13
PROVIDERS: ATTEND Emergency Medicine
DX: Z12.31 Encounter for screening mammogram for malignant neoplasm of breast (principal)
CPT/HCPCS: 77063; 77067